=== PATIENT | female | born 1980 | race Caucasian/White ===

== ENCOUNTER → 2016-06-03 | Outpatient (CLI) | payer OTHER ==
--- NOTE | 2016-06-03 12:23 | US ---
EXAMINATION TYPE: US venous doppler duplex LE RT DATE OF EXAM: 06/03/2016 11:21 AM COMPARISON: NONE CLINICAL HISTORY: 35-year-old female M79.669 Pain in limb. TECHNIQUE: Duplex Doppler ultrasound examination of the right lower extremity. FINDINGS: SIDE PERFORMED: Right TECHNOLOGIST NOTES: Patient of large body habitus. VESSELS IMAGED: External Iliac Vein (EIV) Common Femoral Vein Deep Femoral Vein Greater Saphenous Vein * Femoral Vein Popliteal Vein Small Saphenous Vein * Proximal Calf Veins (* superficial vessels) Posterior tibial veins Right Leg: Negative for DVT IMPRESSION: No evidence for DVT within the right lower extremity.
== END ==
LOC: RADUSWWP 11:14
PROVIDERS: ATTEND Nurse Practitioner Family
DX: M79.669 Pain in unspecified lower leg (principal)